=== PATIENT | female | born 1960 | race African-American/Black ===

== ENCOUNTER 2018-02-28 05:15 | Observation (INO) | payer OTHER, MEDICARE ==
[2018-02-28] MEDS ORDERED: ASPIRIN 81 MG TABLET, CHEWABLE PO ONE (05:38)
--- NOTE | 2018-02-28 06:34 | RADIOLOGY REPORT (SQ) ---
EXAM DESCRIPTION: XR CHEST 1 VIEW COMPLETED DATE/TME: 02/28/2018 05:38 CLINICAL HISTORY: 57 years Female, CP COMPARISON: None. NUMBER OF VIEWS/TECHNIQUE: 1/AP FINDINGS: Adequate lung volume, clear parenchyma, prominent cardiac silhouette, and intact bony thorax. IMPRESSION: No acute cardiopulmonary findings.
[2018-02-28 06:39] LABS: ABSOLUTE EOSINOPHILS # (AUTO) 0.2 10^3/uL (0.0-0.6); ABSOLUTE LYMPHOCYTES (AUTO) 2.2 10^3/uL (0.5-4.7); ABSOLUTE MONOCYTES (AUTO) 0.6 10^3/uL (0.1-1.4); ABSOLUTE NEUT (AUTO) 3.8 10^3/uL (1.7-8.2); BASOPHILS % (AUTO) 0.7 % (0-2); EOSINOPHILS % (AUTO) 2.9 % (0-6); HEMATOCRIT 33.4 % (36.0-47.0); HEMOGLOBIN 11.2 g/dL (12.0-15.5); LYMPHOCYTES % (AUTO) 32.1 % (13-45); MEAN CORPUSCULAR HEMOGLOBIN 31.7 pg (27.0-33.4); MEAN CORPUSCULAR HGB CONC 33.7 g/dL (32.0-36.0); MEAN CORPUSCULAR VOLUME 94 fl (80-97); MONOCYTES % (AUTO) 8.9 % (3-13); PLATELET COUNT 280 10^3/uL (150-450); RED BLOOD COUNT 3.54 10^6/uL (3.72-5.28); RED CELL DISTRIBUTION WIDTH 12.4 % (11.5-14.0); SEGMENTED NEUTROPHILS % (AUTO) 55.4 % (42-78); TOTAL CELLS COUNTED % (AUTO) 100 %; WHITE BLOOD COUNT 6.9 10^3/uL (4.0-10.5)
[2018-02-28 07:01] LABS: ALANINE AMINOTRANSFERASE 18 U/L (9-52); ALBUMIN 4.3 g/dL (3.5-5.0); ALKALINE PHOSPHATASE 78 U/L (38-126); ANION GAP 12 (5-19); ASPARTATE AMINO TRANSFERASE 25 U/L (14-36); BILIRUBIN,DIRECT 0.4 mg/dL (0.0-0.4); BILIRUBIN,TOTAL 0.5 mg/dL (0.2-1.3); BLOOD UREA NITROGEN 18 mg/dL (7-20); CALCIUM 9.8 mg/dL (8.4-10.2); CARBON DIOXIDE 25 mmol/L (22-30); CHLORIDE 108 mmol/L (98-107); CREATINE KINASE 190 U/L (30-135); GLUCOSE 128 mg/dL (75-110); POTASSIUM 4.1 mmol/L (3.6-5.0); SODIUM 144.9 mmol/L (137-145); TOTAL PROTEIN 8.1 g/dL (6.3-8.2)
[2018-02-28 07:13] LABS: CREATINE KINASE MB 0.53 ng/mL (<4.55)
[2018-02-28 07:14] LABS: TROPONIN I < 0.012 ng/mL
--- NOTE | 2018-02-28 07:21 | ER Document Report ---
ED Medical Screen (RME) - General Chief Complaint: Chest Pain Stated Complaint: CHEST PAIN Time Seen by Provider: 02/28/18 07:16 Mode of Arrival: Ambulatory Information source: Patient Notes: Patient presents emergency department with complaints of chest pain started last night she also reports she has jaw pain and radiates down to her left arm. Denies history of SC but reports history of bradycardia high blood pressure high cholesterol. Patient is visiting from [place]. She flew here 2 weeks ago. TRAVEL OUTSIDE OF THE [place] IN LAST 30 DAYS: No - Related Data Allergies/Adverse Reactions: doxycycline Allergy (Verified 02/28/18 05:51) Penicillins Allergy (Verified 04/02/16 13:32) sulfamethoxazole [From Bactrim] Allergy (Verified 04/02/16 13:32) trimethoprim [From Bactrim] Allergy (Verified 04/02/16 13:32) Past Medical History - Social History Chew tobacco use (# tins/day): No Frequency of alcohol use: None Drug Abuse: None - Past Medical History Cardiac Medical History: Reports: Hx Hypercholesterolemia, Hx Hypertension Pulmonary Medical History: Reports: Hx Asthma Endocrine Medical History: Reports: Hx Diabetes Mellitus Type 2 Renal/ Medical History: Denies: Hx Peritoneal Dialysis GI Medical History: Comment Only: Hx Ulcer - Glaucoma, Heart Murmur Psychiatric Medical History: Reports: Hx Depression Past Surgical History: Reports: Hx Orthopedic Surgery - rightknee, right forearm , Hx Tubal Ligation Physical Exam - Vital signs Vitals: Pulse Ox 99 02/28/18 05:51 Course - Vital Signs Vital signs: Temp Pulse Resp BP Pulse Ox 99 02/28/18 05:51 - Laboratory Result Diagrams: 02/28/18 06:20 02/28/18 06:20 Laboratory results interpreted by me: 02/28/18 02/28/18 06:20 06:20 RBC 3.54 L Hgb 11.2 L Hct 33.4 L Chloride 108 H Est GFR (Non-Af Amer) 52 L Glucose 128 H Creatine Kinase 190 H
--- NOTE | 2018-02-28 09:41 | EKG REPORT ---
SEVERITY:- ABNORMAL ECG - SINUS RHYTHM FIRST DEGREE AV BLOCK LEFT VENTRICULAR HYPERTROPHY : Confirmed by: Alyssa Billings 28-Feb-2018 09:40:43
[2018-02-28] MEDS ORDERED: ASPIRIN 81 MG TABLET, CHEWABLE ONE (09:47)
--- NOTE | 2018-02-28 09:55 | ER Document Report ---
ED General - General Mode of Arrival: Ambulatory Information source: Patient TRAVEL OUTSIDE OF THE [place] IN LAST 30 DAYS: No <MCKENZIE BESS - Last Filed: 02/28/18 13:31> <RAHEL RICHARDS - Last Filed: 03/02/18 15:05> - General Chief Complaint: Chest Pain Stated Complaint: CHEST PAIN Time Seen by Provider: 02/28/18 07:16 Notes: Patient is a 57-year-old female who presents to the emergency department today with complaints of left-sided facial pain which began at 1930 along with associated left-sided chest pain that radiates down her left arm. Patient states she noticed the pain beginning around 1930 last night. Patient states that she is here visiting from [place]. Patient had a stress test in [place] but she cannot remember when. (MCKENZIE BESS) - Related Data Allergies/Adverse Reactions: doxycycline Allergy (Verified 02/28/18 11:18) Penicillins Allergy (Verified 02/28/18 11:18) sulfamethoxazole [From Bactrim] Allergy (Verified 02/28/18 11:18) trimethoprim [From Bactrim] Allergy (Verified 02/28/18 11:18) Past Medical History - General Information source: Patient - Social History Smoking Status: Former Smoker Cigarette use (# per day): No Chew tobacco use (# tins/day): No Frequency of alcohol use: None Drug Abuse: None Lives with: Family Family History: Reviewed & Not Pertinent Patient has suicidal ideation: No Patient has homicidal ideation: No - Past Medical History Cardiac Medical History: Reports: Hx Hypercholesterolemia, Hx Hypertension Pulmonary Medical History: Reports: Hx Asthma Endocrine Medical History: Reports: Hx Diabetes Mellitus Type 2 GI Medical History: Comment Only: Hx Ulcer - Glaucoma, Heart Murmur Psychiatric Medical History: Reports: Hx Depression Past Surgical History: Reports: Hx Orthopedic Surgery - rightknee, right forearm , Hx Tubal Ligation <MCKENZIE BESS - Last Filed: 02/28/18 13:31> Review of Systems - Review of Systems Constitutional: No symptoms reported EENT: See HPI, Other - left sided facial pain Cardiovascular: See HPI, Chest pain Respiratory: No symptoms reported Gastrointestinal: No symptoms reported Genitourinary: No symptoms reported Female Genitourinary: No symptoms reported Musculoskeletal: No symptoms reported Skin: No symptoms reported Hematologic/Lymphatic: No symptoms reported Neurological/Psychological: No symptoms reported -: Yes All other systems reviewed and negative <MCKENZIE BESS - Last Filed: 02/28/18 13:31> Physical Exam <MCKENZIE BESS - Last Filed: 02/28/18 13:31> <RAHEL RICHARDS - Last Filed: 03/02/18 15:05> - Vital signs Vitals: Resp Pulse Ox 21 H 99 02/28/18 05:38 02/28/18 05:38 - Notes Notes: Physical Exam: General: Alert, appears well. HEENT: Normocephalic. Atraumatic. PERRL. Extraocular movements intact. Oropharynx clear. Left maxillary sinus tenderness with percussion. 2nd left upper molar is missing. no gingival abscess appreciated. Neck: Supple. Non-tender. Respiratory: No respiratory distress. Clear and equal breath sounds bilaterally. Cardiovascular: Holosystolic murmur, regular rate and rhythm. Abdominal: Normal Inspection. Non-tender. No distension. Normal Bowel Sounds. Back: Non-tender. No deformity or step off. Extremities: Moves all four extremities. Upper extremities: Normal inspection. Normal ROM. Lower extremities: Normal inspection. No edema. Normal ROM. Neurological: Normal cognition. AAOx4. Normal speech. Psychological: Normal affect. Normal Mood. Skin: Warm. Dry. Normal color. (MCKENZIE BESS) Course - Laboratory Result Diagrams: 02/28/18 06:20 02/28/18 06:20 <MCKENZIE BESS - Last Filed: 02/28/18 13:31> - Laboratory Result Diagrams: 02/28/18 06:20 03/01/18 05:50 <RAHEL RICHARDS - Last Filed: 03/02/18 15:05> - Re-evaluation Re-evalutation: 02/28/18 09:55 She will be admitted for chest pain rule out discuss case with Dr. King. I also discussed her maxillary tenderness and possible apical abscess. Will be further evaluated once upstairs (RAHEL RICHARDS) - Vital Signs Vital signs: Temp Pulse Resp BP Pulse Ox 98.1 F 52 L 17 126/48 H 100 03/01/18 15:53 03/01/18 15:53 03/01/18 15:53 03/01/18 15:53 03/01/18 15:53 - Laboratory Laboratory results interpreted by me: 02/28/18 02/28/18 06:20 06:20 RBC 3.54 L Hgb 11.2 L Hct 33.4 L Chloride 108 H Est GFR (Non-Af Amer) 52 L Glucose 128 H Creatine Kinase 190 H Discharge <MCKENZIE BESS - Last Filed: 02/28/18 13:31> - Discharge Admitting Provider: [facility] Admitted: Telemetry <RAHEL RICHARDS - Last Filed: 03/02/18 15:05> - Discharge Clinical Impression: Chest pain Qualifiers: Chest pain type: unspecified Qualified Code(s): R07.9 - Chest pain, unspecified Condition: Good Disposition: ADMITTED OBSERVATION Scribe Attestation: 03/02/18 15:05 I personally performed the services described documentation, reviewed and edited the documentation which was dictated to describe my presence, and it accurately records my words and actions. (RAHEL RICHARDS) Scribe Documentation - Scribe Written by Isabelleibe:: Mason Jennings, 02/28/2018 1347 acting as scribe for :: Richi <MCKENZIE BESS - Last Filed: 02/28/18 13:31>
[2018-02-28] MEDS ORDERED: ASPIRIN 325 MG TABLET, ENT COATED PO ONE (10:15)
[2018-02-28] MEDS ORDERED: NITROGLYCERIN 0.4 MG/TAB 25 TAB/BOTTLE SL PRN (10:25)
--- NOTE | 2018-02-28 10:54 | PDOC H&P ---
History of Present Illness Admission Date/PCP: 02/28/18 10:09 Patient complains of: Left facial pain and left arm pain History of Present Illness: MURPHY TRIVEDI is a 57 year old female visiting from [place] who claims to have a history of CHF but is not on any "fluid pill" and she does not really know what other medication she is on. She said that last night she started having where she initially called jaw pain but when questioned further determined that it is left maxillary pain, laterally near 1 of her upper molars where she has some dental caries. She said is been fairly constant since last night. She has not had any fevers. She said then this morning early in the morning after midnight, she started having pain in her left arm that persisted for 6 or 7 hours so she got to the emergency department at which point it stopped. She told the ER provider she was also having some chest discomfort or shortness of shortness of breath, and admitted to me that she got a little anxious when her arm was hurt and she was short of breath them but she said that that stopped and that she also has no longer any pain in her left arm. She says she has never had a heart attack. Apparently she had a stress test a couple of months ago back home and it was normal. She has never had a heart catheterization. She is diabetic. She is a non-smoker. She has never had cardiac surgery. She says heart disease runs in her family but she is not exactly sure who is had heart disease or what type of heart disease they have had. Past Medical History Cardiac Medical History: Reports: Hyperlipidema, Hypertension Pulmonary Medical History: Reports: Asthma Endocrine Medical History: Reports: Diabetes Mellitus Type 2 Psychiatric Medical History: Reports: Depression Past Surgical History Past Surgical History: Reports: Orthopedic Surgery - rightknee, right forearm, Tubal Ligation Social History Smoking Status: Former Smoker Family History Family History: Reviewed & Not Pertinent Parental Family History Reviewed: Yes - Patient cannot remember exactly what they had Children Family History Reviewed: Yes - Noncontributory Sibling(s) Family History Reviewed.: Yes - Patient thinks that some of them have heart disease but she is not exactly sure Medication/Allergy Home Medications: Hydrocodone/Acetaminophen [[place] 5-325 Tablet] 1 each PO Q4H PRN #16 tablet Allergies/Adverse Reactions: doxycycline Allergy (Verified 02/28/18 07:28) Penicillins Allergy (Verified 02/28/18 07:28) sulfamethoxazole [From Bactrim] Allergy (Verified 02/28/18 07:28) trimethoprim [From Bactrim] Allergy (Verified 02/28/18 07:28) Review of Systems All systems: reviewed and no additional remarkable complaints except as stated - 10 point review of systems was conducted with the patient was negative except as noted above in the HPI Physical Exam Vital Signs: Temp Pulse Resp BP Pulse Ox 25 H 167/74 H 97 02/28/18 10:02 02/28/18 10:02 02/28/18 10:02 General appearance: PRESENT: no acute distress, disheveled, morbidly obese, well -developed Head exam: PRESENT: atraumatic, normocephalic Eye exam: PRESENT: conjunctiva pink, EOMI, PERRLA. ABSENT: scleral icterus Ear exam: PRESENT: normal external ear exam Mouth exam: PRESENT: moist, tongue midline Teeth exam: PRESENT: dental caries, poor dentation - The area in question in her left upper line of teeth shows that she has a proximal molar missing and she has fillings and most teeth on the top were removed on the left with caries on the existing molar and premolar in front of the missing molar, no obvious exudate or drainage or swelling Throat exam: ABSENT: post pharyngeal erythema, tonsillar erythema, tonsillar exudate, tonsillogmegaly Neck exam: ABSENT: carotid bruit, JVD, lymphadenopathy, thyromegaly Respiratory exam: PRESENT: clear to auscultation vince. ABSENT: rales, rhonchi, wheezes Cardiovascular exam: PRESENT: RRR, systolic murmur - 2 out of 6 systolic murmur heard easily at the left and right upper sternal borders. ABSENT: diastolic murmur, rubs Pulses: PRESENT: normal carotid pulses, normal radial pulses, normal femoral pulses Vascular exam: PRESENT: normal capillary refill GI/Abdominal exam: PRESENT: normal bowel sounds, soft. ABSENT: distended, guarding, mass, organolmegaly, rebound, tenderness Rectal exam: PRESENT: deferred Extremities exam: PRESENT: full ROM. ABSENT: calf tenderness, clubbing, pedal edema Neurological exam: PRESENT: alert, awake, oriented to person, oriented to place , oriented to time, oriented to situation, CN II-XII grossly intact Psychiatric exam: PRESENT: appropriate affect, normal mood Skin exam: PRESENT: dry, warm Results Laboratory Results: Reviewed as per the chart Impressions: Chest X-Ray 02/28/18 05:38 IMPRESSION: No acute cardiopulmonary findings. Assessment & Plan - Diagnosis (1) Chest pain Qualifiers: Chest pain type: unspecified Qualified Code(s): R07.9 - Chest pain, unspecified Is this a current diagnosis for this admission?: Yes Plan: While she was not complaining of chest pain specifically, with her history of diabetes and possibly heart failure she had lower jaw pain at one point on the left but not now, and she also had left arm pain which is also resolved, and she did have some shortness of breath at one point, and these are potentially anginal equivalents. We will put her on a nuclear monitoring technician and trend her troponins, the initial one being normal. We will get a lipid panel and an echocardiogram to evaluate her cardiac function to see if she indeed actually has heart failure. I wonder if this is actually the case because she is not on any diuretic that she can think of. (2) Facial pain Is this a current diagnosis for this admission?: Yes Plan: Because of her poor dentition, there is a concern for dental infection. We will get a CT scan of the facial area to rule out infection or abscess. (3) Type 2 diabetes mellitus Qualifiers: Diabetes mellitus complication status: with ophthalmic complications Diabetes mellitus complication detail: with other ophthalmic complication Is this a current diagnosis for this admission?: Yes Plan: She says she is on metformin at home but she does not know the dose. Put her on a diabetic diet. I have encouraged her to have a family member bring in her medications from home so we can get her on everything she is supposed to be on. - Time Time Spent: 50 to 70 Minutes Medications reviewed and adjusted accordingly: No - Were awaiting the arrival of her medications so that we can verify what she Anticipated discharge: Home
[2018-02-28] MEDS: LISINOPRIL 10 MG TABLET PO SCH (11:04)
--- NOTE | 2018-02-28 14:05 | RADIOLOGY REPORT (SQ) ---
EXAM DESCRIPTION: CT FACIAL AREA WITH COMPLETED DATE/TIME: 02/28/2018 1:14 pm REASON FOR STUDY: poor dentition and left maxillary pain R07.9 CHEST PAIN, UNSPECIFIED COMPARISON: None. TECHNIQUE: Post contrast images through the facial bones and orbits windowed for bone and soft tissu e. Additional coronal and sagittal reconstructed images reviewed. All images stored on PACS. All CT scanners at this facility use dose modulation, iterative reconstruction, and/or weight based d osing when appropriate to reduce radiation dose to as low as reasonably achievable (ALARA). [facility]: Dose Right [facility]: CareDose [facility]: Dose Right [facility]: Teradose 4D [facility]: DTVCast CONTRAST TYPE AND DOSE: contrast/concentration: Isovue 370.00 mg/ml; Total Contrast Delivered: 75.0 ml; Total Saline Delivered: 47.7 ml RENAL FUNCTION: Creatinine 1.1 RADIATION DOSE: CT Rad equipment meets quality standard of care and radiation dose reduction techniq ues were employed. CTDIvol: 30.4 mGy. DLP: 576 mGy-cm. . LIMITATIONS: None. FINDINGS: FACIAL BONES: No fracture or bone lesion. ORBITS: Intact. No fracture. Symmetric intact globes and retroorbital soft tissues. PARANASAL SINUSES: Clear. No significant mucosal thickening, mass or fluid. No nasal polyps. Maxilla ry sinus outlets are patent. SOFT TISSUES: No mass or edema. No abnormal enhancement. INFERIOR BRAIN: Limited view. No acute findings. OTHER: Periapical tooth root lucencies along the right posterior 2nd smaller, best shown on axial marysol ge 32 and sagittal images 19-21, indicating small abscesses or dental infection. IMPRESSION: No air-fluid levels in the sinuses Periapical tooth root lucencies along the right posterior upper molar tooth, indicating small abscess es or dental infection TECHNICAL DOCUMENTATION: JOB ID: [id number] Quality ID # [id number]: Final reports with documentation of one or more dose reduction techniques (e.g., Au tomated exposure control, adjustment of the mA and/or kV according to patient size, use of iterative reconstruction technique) 2010 [employer]- All Rights Reserved Reading location - IP/workstation name: [facility]
[2018-02-28] MEDS: IBUPROFEN 600 MG TABLET PO PRN ×2 (16:00→22:58)
[2018-02-28] MEDS: CLINDAMYCIN HCL 150 MG CAPSULE PO SCH ×2 (17:54→23:10)
[2018-02-28] MEDS ORDERED: ATORVASTATIN CALCIUM 80 MG TABLET PO SCH (22:00)
[2018-03-01] MEDS: ATENOLOL 50 MG TABLET PO SCH ×2 (00:47→11:19)
[2018-03-01] MEDS: CLINDAMYCIN HCL 150 MG CAPSULE PO SCH ×2 (05:45→12:32)
[2018-03-01] MEDS: IBUPROFEN 600 MG TABLET PO PRN ×2 (05:45→13:32)
[2018-03-01 07:07] LABS: ANION GAP 12 (5-19); BLOOD UREA NITROGEN 16 mg/dL (7-20); CALCIUM 9.9 mg/dL (8.4-10.2); CARBON DIOXIDE 25 mmol/L (22-30); CHLORIDE 107 mmol/L (98-107); GLUCOSE 99 mg/dL (75-110); POTASSIUM 4.3 mmol/L (3.6-5.0)
[2018-03-01] MEDS ORDERED: ASPIRIN 325 MG TABLET, ENT COATED PO SCH (10:00)
[2018-03-01] MEDS: LISINOPRIL 10 MG TABLET PO SCH (10:35)
[2018-03-01 11:56] VITALS: BP 126/48
--- NOTE | 2018-03-01 12:41 | XCELERA REPORT ---
[address] [address] Transthoracic Echocardiogram Report Name: MURPHY TRIVEDI Age: 57 yrs Gender: Female : 1960 Patient Status: Inpatient Patient Location: [address] [place], [place] [address] Study Date: 03/01/2018 09:29 AM Height: 64 in Weight: 249 lb BSA: 2.1 m2 Procedure: A two-dimensional transthoracic echocardiogram with color flow and Doppler was performed. The study was technically difficult with many images being suboptimal in quality. Reason For Study: CHEST PAIN / CHF History: Chest pain. CHF. Ordering Physician: PATRICK MARTIN Performed By: José Miguel Dominguez Interpretation Summary Recommend KAVON to have a better look at the mitral valve and MR jets. The left ventricle is normal in size. There is normal left ventricular wall thickness. LV EF is > than 65% Left ventricular systolic function is normal. Doppler measurements suggest impaired left ventricular relaxation, which is associated with grade I/IV or mild diastolic dysfunction The left ventricular wall motion is normal. There is no thrombus. There is no ventricular septal defect visualized. The right ventricle is not well visualized secondary to technical limitations The right atrium is normal. The left atrial size is normal. The interatrial septum is intact with no evidence for an atrial septal defect. There is moderate mitral annular calcification. There is mild mitral leaflet calcification. There is mild mitral valve prolapse. There is no vegetation seen on the mitral valve. There is mild mitral stenosis There is a moderate eccentric jet posteriorly directed jet, and in the subcostal view thre is a mild anterior jet of MR. There is no aortic valvular vegetation. There is mild aortic stenosis There is a peak gradient of 21 mm of Hg. No aortic regurgitation is present. There is no tricuspid stenosis. Perhaps Trace to Mild TR , with Moderate pulmonary hypertension.RVSP is 46 to 51 mm of Hg , with RA mean of 5 to 10. There is no pericardial effusion. Recommend KAVON to have a better look at the mitral valve and MR jets. MMode/2D Measurements & Calculations RVDd: 3.2 cm LVIDd: 4.6 cm FS: 41.5 % Ao root diam: 2.5 cm IVSd: 0.94 cm LVIDs: 2.7 cm EDV(Teich): 98.0 ml LVPWd: 0.90 cmESV(Teich): 27.0 ml Ao root area: 4.8 cm2 EF(Teich): 72.4 % LA dimension: 3.9 cm LVOT diam: 1.8 cm LVOT area: 2.4 cm2 Doppler Measurements & Calculations MV E max herb: MV P1/2t max herb: Ao V2 max: LV V1 max P.4 cm/sec 116.7 cm/sec 228.0 cm/sec 4.5 mmHg MV A max herb: MV P1/2t: 129.7 msec Ao max PG: LV V1 max: 133.8 cm/sec MVA(P1/2t): 1.7 cm2 20.8 mmHg 105.9 cm/sec MV E/A: 0.91 MV dec slope: CHRIS(V,D): 1.1 cm2 263.6 cm/sec2 MV dec time: 0.44 sec TV V2 max: PA V2 max: 318.5 cm/sec 97.2 cm/sec TV max PG: PA max P.8 mmHg 40.7 mmHg Left Ventricle The left ventricle is normal in size. There is normal left ventricular wall thickness. LV EF is > than 65%. Left ventricular systolic function is normal. Doppler measurements suggest impaired left ventricular relaxation, which is associated with grade I/IV or mild diastolic dysfunction. The left ventricular wall motion is normal. There is no thrombus. There is no ventricular septal defect visualized. Right Ventricle The right ventricle is not well visualized secondary to technical limitations. Atria The right atrium is normal. The left atrial size is normal. The interatrial septum is intact with no evidence for an atrial septal defect. Mitral Valve There is moderate mitral annular calcification. There is mild mitral leaflet calcification. There is mild mitral valve prolapse. There is no vegetation seen on the mitral valve. There is mild mitral stenosis. There is a moderate eccentric jet posteriorly directed jet, and in the subcostal view thre is a mild anterior jet of MR. Aortic Valve The aortic valve is trileaflet. The aortic valve opens well. There is no aortic valvular vegetation. There is no LVOT obstruction. There is mild aortic stenosis. There is a peak gradient of 21 mm of Hg. No aortic regurgitation is present. Tricuspid Valve There is no tricuspid stenosis. Perhaps Trace to Mild TR , with Moderate pulmonary hypertension.RVSP is 46 to 51 mm of Hg , with RA mean of 5 to 10. Pulmonic Valve There is no pulmonic valvular stenosis. There is a trace amount of pulmonic regurgitation. Great Vessels The aortic root is normal size. Effusions There is no pericardial effusion. : PATRICK MARTIN > Kristy Mccullough
--- NOTE | 2018-03-01 15:51 | PDOC DISCHARGE SUMMARY ---
General - Admit/Disc Date/PCP Admission Date/Primary Care Provider: 02/28/18 10:09 Discharge Date: 03/01/18 - Discharge Diagnosis (1) Chest pain Is this a current diagnosis for this admission?: Yes Summary: [place] ruled out. She is actually complaining more of jaw and neck pain which have resolved. Echocardiogram showed some mitral valve prolapse but no wall motion abnormalities. (2) Facial pain Is this a current diagnosis for this admission?: Yes Summary: Due to odontogenic infection (3) Type 2 diabetes mellitus Is this a current diagnosis for this admission?: Yes (4) Odontogenic infection of jaw Is this a current diagnosis for this admission?: Yes Summary: She has an odontogenic infection in the upper over teeth on the left side. She was started on clindamycin because she is penicillin allergic. She will complete a course of therapy at home. - Additional Information Resuscitation Status: Full Code Discharge Diet: Other (Comments) - resume previous Discharge Activity: Activity As Tolerated Prescriptions: Clindamycin HCl [Cleocin 150 mg Capsule] 450 mg PO Q8 #90 capsule Home Medications: Albuterol Sulfate [Proair HFA] 2 puff IH Q4HP PRN 02/28/18 Albuterol Sulfate [Ventolin 0.083% Neb 2.5 mg/3 ml Ampul] 1 vial NEB RTQ4HP PRN 02/28/18 Amlodipine Besylate [Norvasc 5 mg Tablet] 5 mg PO DAILY 02/28/18 Aspirin [Aspirin EC] 81 mg PO DAILY 02/28/18 Enalapril Maleate [Vasotec 10 mg Tablet] 10 mg PO Q12 02/28/18 Fluoxetine HCl [Prozac 20 mg Capsule] 20 mg PO DAILY 02/28/18 Latanoprost [Xalatan 0.005% Oph Soln 2.5 ml] 1 drop OU QHS 02/28/18 Pravastatin Sodium [Pravachol] 40 mg PO QHS 02/28/18 Trazodone HCl [Desyrel 50 mg Tablet] 50 mg PO HSP PRN 02/28/18 Clindamycin HCl [Cleocin 150 mg Capsule] 450 mg PO Q8 #90 capsule 03/01/18 History of Present Illness History of Present Illness: MURPHY TRIVEDI is a 57 year old female visiting from [place] who claims to have a history of CHF but is not on any "fluid pill" and she does not really know what other medication she is on. She said that last night she started having where she initially called jaw pain but when questioned further determined that it is left maxillary pain, laterally near 1 of her upper molars where she has some dental caries. She said is been fairly constant since last night. She has not had any fevers. She said then this morning early in the morning after midnight, she started having pain in her left arm that persisted for 6 or 7 hours so she got to the emergency department at which point it stopped. She told the ER provider she was also having some chest discomfort or shortness of shortness of breath, and admitted to me that she got a little anxious when her arm was hurt and she was short of breath them but she said that that stopped and that she also has no longer any pain in her left arm. She says she has never had a heart attack. Apparently she had a stress test a couple of months ago back home and it was normal. She has never had a heart catheterization. She is diabetic. She is a non-smoker. She has never had cardiac surgery. She says heart disease runs in her family but she is not exactly sure who is had heart disease or what type of heart disease they have had. Hospital Course Hospital Course: She was ruled out for [place]. Echocardiogram showed some mitral valve prolapse and cardiology has recommended that when she gets back home to [place] she undergo a KAVON. No further intervention was recommended at this time. CT of her facial bones showed a periodontal infection without definite abscess. She was placed on clindamycin because she is penicillin allergic. She will finish a 10 day course of that at home. Her comorbid conditions were managed with her home medications are on acutely exacerbated during this hospitalization. Her exam her labs were reassuring and she was discharged in good condition. Physical Exam Vital Signs: Temp Pulse Resp BP Pulse Ox 98.1 F 52 L 17 126/48 H 100 03/01/18 11:55 03/01/18 11:55 03/01/18 11:55 03/01/18 11:55 03/01/18 11:55 Intake & Output 02/28/18 03/01/18 03/02/18 06:59 06:59 06:59 Intake Total 133 Output Total 900 Balance -767 Weight 112.2 kg General appearance: PRESENT: no acute distress, well-developed, well-nourished Head exam: PRESENT: atraumatic, normocephalic Teeth exam: PRESENT: dental caries, poor dentation Respiratory exam: PRESENT: clear to auscultation vince. ABSENT: rales, rhonchi, wheezes Cardiovascular exam: PRESENT: RRR. ABSENT: diastolic murmur, rubs, systolic murmur GI/Abdominal exam: PRESENT: normal bowel sounds, soft. ABSENT: distended, guarding, mass, organolmegaly, rebound, tenderness Extremities exam: PRESENT: full ROM. ABSENT: calf tenderness, clubbing, pedal edema Neurological exam: PRESENT: alert, awake, oriented to person, oriented to place , oriented to time Results Laboratory Results: 03/01/18 05:50 03/01/18 05:50 Sodium 144.0 Potassium 4.3 Chloride 107 Carbon Dioxide 25 Anion Gap 12 BUN 16 Creatinine 1.16 Est GFR ( Amer) 58 L Est GFR (Non-Af Amer) 48 L Glucose 99 Calcium 9.9 02/28/18 02/28/18 02/28/18 10:12 15:50 22:00 Troponin I < 0.012 < 0.012 < 0.012 Impressions: Facial Bones CT 02/28/18 00:00 IMPRESSION: No air-fluid levels in the sinuses Periapical tooth root lucencies along the right posterior upper molar tooth, indicating small abscesses or dental infection Chest X-Ray 02/28/18 05:38 IMPRESSION: No acute cardiopulmonary findings. Qualifiers - * PATIENT BEING DISCHARGED WITH ANY OF THE FOLLOWING DIAGNOSIS: No
== END 2018-03-01 16:20 | disposition home or self-care (01) ==
LOC: ER 05:15 → EH 10:09 → 4N 13:47
PROVIDERS: ADMIT Family Medicine; ATTEND Family Medicine
DX: R07.9 Chest pain, unspecified (principal); I34.1 Nonrheumatic mitral (valve) prolapse; M54.2 Cervicalgia; R51 Headache; E11.39 Type 2 diabetes mellitus with other diabetic ophthalmic complication; K05.20 Aggressive periodontitis, unspecified; K02.9 Dental caries, unspecified; M79.602 Pain in left arm; E66.01 Morbid (severe) obesity due to excess calories; R06.02 Shortness of breath; Z88.0 Allergy status to penicillin; Z79.899 Other long term (current) drug therapy; Z79.82 Long term (current) use of aspirin; Z82.49 Family history of ischemic heart disease and other diseases of the circulatory system; Z87.891 Personal history of nicotine dependence; Z68.41 Body mass index [BMI] 40.0-44.9, adult
CPT/HCPCS: 93005; 99285; 36415 ×2; 82553; 82962 ×2; 82550; 85025; 80048; 80053; 84484; 93306; 71045; 70487; 93010; G0378 ×3; A9270 ×9; J3490 ×2